=== PATIENT | female | born 1975 | race African-American/Black ===

== ENCOUNTER 2021-07-03 20:30 | Emergency (ER) | payer BC ==
[~2021-07-03] VITALS: Ht 154.9 cm; Wt 105.0 kg
--- NOTE | 2021-07-03 20:47 | PHYS DOC ---
General Adult EDM: Chief Complaint: ABDOMINAL PAIN HPI: HPI: Patient is a 45 year old female presents with a chief complaint of left sided abdominal pain. Patient's pain is in the left flank with radiation to suprapubic. Patient states she has some nausea but has not vomited she states she has some decreased urine output. Patient states symptoms have been ongoing for 3 days progressively getting worse. Review of Systems: Review of Systems: Review of systems: Constitutional symptoms- No fever, no chills. Eyes- No Discharge, No Visual Loss Respiratory symptoms- No shortness of breath, No wheezing, No Dyspnea on Exertion Cardiovascular Systems; No chest pain, No Palpitations, No syncope Gastrointestinal symptoms: NO abdominal pain, positive nausea, no vomiting no diarrhea. Genitourinary symptoms: No dysuria. Positive flank pain positive decreased urinary output Musculoskeletal symptoms: No back pain No extremity pain. NEUROLOGICAL Symptoms: No headache, no generalized weakness; No focal Weakness Skin: No rash. Heart Score: C/O Chest Pain: N/A Risk Factors: Risk Factors: DM, Current or recent (<one month) smoker, HTN, HLP, family history of CAD, obesity. Risk Scores: Score 0 - 3: 2.5% MACE over next 6 weeks - Discharge Home Score 4 - 6: 20.3% MACE over next 6 weeks - Admit for Clinical Observation Score 7 - 10: 72.7% MACE over next 6 weeks - Early Invasive Strategies Physical Exam: PE: Constitutional: Well developed, well nourished, no acute distress, non-toxic appearance. [] HENT: Normocephalic, atraumatic, bilateral external ears normal, oropharynx moist, no oral exudates, nose normal. [] Eyes: PERRLA, EOMI, conjunctiva normal, no discharge. [] Neck: Normal range of motion, no tenderness, supple, no stridor. [] Cardiovascular:Heart rate regular rhythm, no murmur [] Lungs & Thorax: Bilateral breath sounds clear to auscultation [] Abdomen: Bowel sounds normal, soft, no tenderness, no masses, no pulsatile masses. [] Skin: Warm, dry, no erythema, no rash. [] Back: No tenderness, no CVA tenderness. [] Extremities: No tenderness, no cyanosis, no clubbing, ROM intact, no edema. [] Neurologic: Alert and oriented X 3, normal motor function, normal sensory function, no focal deficits noted. [] Psychologic: Affect normal, judgement normal, mood normal. [] EKG: EKG: [] Radiology/Procedures: Radiology/Procedures: [] Course & Med Decision Making: Course & Med Decision Making Pertinent Labs and Imaging studies reviewed. (See chart for details) [] Treated with IV fluids and Toradol. Patient's CT 5 mm distal stone. Patient urine small amount of WBCs positive loose slight esterase large amount of epithelial suspect contamination. Will prescribe patient Flomax, hydrocodone, and Keflex. Patient will be referred to urology. Strict return instructions if pain continues gets worse with fevers and/or nausea and vomiting. Dragon Disclaimer: Dragon Disclaimer: This electronic medical record was generated, in whole or in part, using a voice recognition dictation system. Departure Departure Impression: Primary Impression: Kidney stone Disposition: HOME / SELF CARE / HOMELESS Condition: STABLE Referrals: SILVERIO AVINA MD Patient Instructions: Kidney Stones Scripts Hydrocodone/Acetaminophen (Hydrocodone-Acetamin 5-325 mg) 1 Each Tablet 1 EACH PO Q4-6HRS, #14 TAB Prov: ANTHONY MCNAMARA I DO 07/03/21 Tamsulosin Hcl (FLOMAX) 0.4 Mg Cap.er.24h 0.4 MG PO DAILY for 14 Days, #14 TAB Prov: ANTHONY MCNAMARA I DO 07/03/21 Cephalexin (KEFLEX) 500 Mg Capsule 1 CAP PO BID, #20 CAP Prov: ANTHONY MCNAMARA I DO 07/03/21 ANTHONY MCNAMARA I DO Jul 03, 2021 20:47
[2021-07-03 20:59] LABS: CLARITY,URINE HAZY; COLOR,URINE YELLOW
[2021-07-03 21:00] LABS: BILIRUBIN,URINE NEGATIVE (NEG); NITRITE,URINE NEGATIVE (NEG); PH,URINE 7.5 (<5.0-8.0); PROTEIN,URINE NEGATIVE (NEG-TRACE); UROBILINOGEN,URINE 0.2 mg/dL (0.2 mg/dL)
[2021-07-03 21:02] LABS: BACTERIA,URINE MODERATE /HPF (0-FEW)
[2021-07-03 21:12] LABS: BASO # 0.1 x10^3/uL (0.0-0.2); BASO % 1 % (0-3); EOS # 0.3 x10^3/uL (0.0-0.7); EOS % 2 % (0-3); HEMATOCRIT 45.7 % (36.0-47.0); HEMOGLOBIN 15.1 g/dL (12.0-15.5); LYMPH # 3.5 x10^3/uL (1.0-4.8); LYMPH % 21 % (24-48); MEAN CORPUSCULAR HEMOGLOBIN 30 pg (25-35); MEAN CORPUSCULAR HGB CONC 33 g/dL (31-37); MEAN CORPUSCULAR VOLUME 92 fL (79-100); MONO % 6 % (0-9); NEUT # 11.6 x10^3/uL (1.8-7.7); NEUT % 70 % (31-73); PLATELET COUNT 324 x10^3/uL (140-400); RED BLOOD COUNT 4.98 x10^6/uL (3.50-5.40); WHITE BLOOD COUNT 16.6 x10^3/uL (4.0-11.0)
[2021-07-03 21:43] LABS: CALCIUM 8.7 mg/dL (8.5-10.1); CREATININE 1.2 mg/dL (0.6-1.0); POTASSIUM 4.1 mmol/L (3.5-5.1)
[2021-07-03 21:44] LABS: GFR 59.3
[2021-07-03 21:49] LABS: ALBUMIN 3.3 g/dL (3.4-5.0); ALBUMIN/GLOBULIN RATIO 0.9 (1.0-1.7); TOTAL BILIRUBIN 0.2 mg/dL (0.2-1.0); TOTAL PROTEIN 6.9 g/dL (6.4-8.2)
--- NOTE | 2021-07-03 21:52 | RAD ---
Exam Date: 07/03/2021 9:[address] ABDOMEN+PELVIS WO Indication: Reason: left flank pain / Spl. Instructions: / History: . TECHNIQUE: CT examination of the abdomen and pelvis was performed without oral or intravenous contra st. One or more of the following dose reduction techniques were utilized: *Automated exposure control (AEC) *Adjustment of mA and/or kV according to patient size *Use of iterative reconstruction technique *CT scan done according to ALARA, or ALARA/IMAGE GENTLY FINDINGS: The visualized lung bases are clear. Adrenal glands appear prominent bilaterally which is nonspecific but could represent hyperplasia. The liver, gallbladder, spleen, pancreas, and adrenal glands are otherwise normal. There is mild left hydroureteronephrosis. There is a 6.6 cm left adnexal cyst. The dilated ureter i s mostly obscured by the left adnexal cyst. There is a 5 mm calcification posterior and to the left of the left adnexal cyst, in the region of the distal left ureter and could represent an obstructing ureteral calculus. Alternatively, this could represent a phlebolith, and the left ureter could be ob structed by the large left adnexal cyst. The kidneys are otherwise normal bilaterally. No right hydronephrosis or hydroureter is seen. No ri ght urinary tract calculi are seen. Urinary bladder is normal in appearance. Diverticulosis coli is seen without bowel obstruction or inflammation. The appendix is normal. Minimal atherosclerotic calcifications are seen. No lymphadenopathy or ascites is seen. Degenerative changes are seen in the spine. IMPRESSION: Mild left hydroureteronephrosis. The distal left ureter is obscured by surrounding structures. 5 mm calcification in the left pelvis in the expected region of the distal left ureter could represent ob structing ureteral calculus. Alternatively, this could represent a phlebolith, and the left ureter m ay be obstructed by the large left adnexal cyst measuring up to 6.6 cm. Bilateral adrenal prominence is nonspecific but could represent hyperplasia. Electronically signed by: Leander Moore MD (07/03/2021 9:49 PM) [facility]
[2021-07-03] MEDS ORDERED: TAMSULOSIN 0.4 MG CAP.ER.24H. PO ONE ×2 (22:00→22:29)
[2021-07-03] MEDS ORDERED: IV NORMAL SALINE 1000ML BAG 1,000 ML IV ONE (22:00)
[2021-07-03] MEDS ORDERED: HYDR-2759 PO (22:31)
[2021-07-03] MEDS ORDERED: TAMS0.4C97 PO (22:31)
[2021-07-03] MEDS ORDERED: CEPH500C PO (22:31)
[2021-07-03 23:25] VITALS: BP 150/83
== END 2021-07-03 23:26 | disposition home or self-care (01) ==
LOC: ER 20:30
DX: N13.2 Hydronephrosis with renal and ureteral calculous obstruction (principal)
CPT/HCPCS: 36415; 74176; 80053; 81001; 81025; 83690; 85025; 87086; 96360; 99285; J7030

== ENCOUNTER 2021-08-13 23:46 | Emergency (ER) | payer BC ==
[~2021-08-13] VITALS: Ht 154.9 cm; Wt 102.0 kg
[~2021-08-13 23:46] MED LIST: CEPH500C PO; HYDR-2759 PO; TAMS0.4C97 PO
[2021-08-14 00:28] VITALS: BP 129/74
--- NOTE | 2021-08-14 00:57 | PHYS DOC ---
Past Medical History Past Surgical History: Hysterectomy Smoking Status: Current Every Day Smoker Alcohol Use: None General Adult EDM: Chief Complaint: SHORTNESS OF BREATH HPI: HPI: Patient is a 45 year old female who woke up from sleep, feeling heart palpitation, having trouble breathing. Patient was afraid to go back to sleep since he came in here for evaluation. Patient denies any chest pain or any trouble breathing at this time. Patient denies any abdominal pain, no nausea vomiting. Patient denies any history of a heart problem or diabetic. Patient denies suicidal ideation or homicidal ideation patient does have history of high blood pressure Review of Systems: Review of Systems: Constitutional: Denies fever or chills. [] Eyes: Denies change in visual acuity. [] HENT: Denies nasal congestion or sore throat. [] Respiratory: Denies cough or shortness of breath. [] Cardiovascular: Denies chest pain or edema. [] GI: Denies abdominal pain, nausea, vomiting, bloody stools or diarrhea. [] : Denies dysuria. [] Musculoskeletal: Denies back pain or joint pain. [] Integument: Denies rash. [] Neurologic: Denies headache, focal weakness or sensory changes. [] Endocrine: Denies polyuria or polydipsia. [] Lymphatic: Denies swollen glands. [] Psychiatric: Denies depression or anxiety. [] Heart Score: C/O Chest Pain: N/A Risk Factors: Risk Factors: DM, Current or recent (<one month) smoker, HTN, HLP, family history of CAD, obesity. Risk Scores: Score 0 - 3: 2.5% MACE over next 6 weeks - Discharge Home Score 4 - 6: 20.3% MACE over next 6 weeks - Admit for Clinical Observation Score 7 - 10: 72.7% MACE over next 6 weeks - Early Invasive Strategies Allergies: Allergies: Allergies Coded Allergies Type Severity Reaction Last Updated Verified No Known Drug Allergies 07/03/21 No Physical Exam: PE: Constitutional: Well developed, well nourished, no acute distress, non-toxic appearance. [] HENT: Normocephalic, atraumatic, bilateral external ears normal, oropharynx moist, no oral exudates, nose normal. [] Eyes: PERRLA, EOMI, conjunctiva normal, no discharge. [] Neck: Normal range of motion, no tenderness, supple, no stridor. [] Cardiovascular:Heart rate regular rhythm, no murmur [] Lungs & Thorax: Bilateral breath sounds clear to auscultation [] Abdomen: Bowel sounds normal, soft, no tenderness, no masses, no pulsatile masses. [] Skin: Warm, dry, no erythema, no rash. [] Back: No tenderness, no CVA tenderness. [] Extremities: No tenderness, no cyanosis, no clubbing, ROM intact, no edema. [] Neurologic: Alert and oriented X 3, normal motor function, normal sensory function, no focal deficits noted. [] Psychologic: Affect normal, judgement normal, mood normal. [] Current Patient Data: Vital Signs: Vital Signs Date Time Temp Pulse Resp B/P (MAP) Pulse Ox O2 Delivery O2 Flow Rate FiO2 08/14/21 00:28 98.1 82 14 129/74 (92) 100 Room Air 98.1 EKG: EKG: EKG was done at 1 AM, heart rate 80 bpm, normal sinus rhythm, no ST segment elevation Radiology/Procedures: Radiology/Procedures: [][facility] [address] [place] [address] IMAGING REPORT Signed PATIENT: NEFTALY SORIANO ACCOUNT: [id number] : 1975 LOCATION: ER AGE: 45 SEX: F EXAM STATUS: REG ER ORD. PHYSICIAN: SUN RIVERA DO REASON: soa, cough PROCEDURE: CHEST AP ONLY AP chest x-ray HISTORY: Shortness of breath and cough. FINDINGS: Heart size is normal. Mediastinal silhouette is normal. No pneumothorax, pulmonary opacities or pleural effusions. Bones are unremarkable. IMPRESSION: No acute process. Electronically signed by: Nicolasa Rodriguez MD (08/14/2021 1:08 AM) [facility] [place] DICTATED and SIGNED BY: NICOLASA RODRIGUEZ MD DATE: 08/14/21 0107 Course & Med Decision Making: Course & Med Decision Making Pertinent Labs and Imaging studies reviewed. (See chart for details) Patient is a 45-year-old female who woke up this morning with heart palpitations and trouble breathing. Apparently patient had a panic attack, she did not want to go back to sleep. EKG and chest x-ray did not show any acute problem. Patient be discharged home. Patient states he feels much better now Yobany Disclaimer: Yobany Disclaimer: This electronic medical record was generated, in whole or in part, using a voice recognition dictation system. Departure Departure Impression: Primary Impression: Panic attack Disposition: HOME / SELF CARE / HOMELESS Condition: IMPROVED Referrals: UNKNOWN PCP NAME (PCP) Follow up with your doctor as needed Patient Instructions: Anxiety and Panic Attacks Additional Instructions: Thank you for visiting our Emergency Department. We appreciate you trusting us with your care. If any additional problems come up don't hesitate to return to visit us. Please follow up with your primary care provider so they can plan additional care if needed and know about the problem that you had. If symptoms worsen come back to the Emergency Department. Any concerning symptoms that start such as chest pain, shortness of air, weakness or numbness on one side of the body, running high fevers or any other concerning symptoms return to the ER. SUN RIVERA DO Aug 14, 2021 00:57
--- NOTE | 2021-08-14 01:11 | RAD ---
AP chest x-ray HISTORY: Shortness of breath and cough. FINDINGS: Heart size is normal. Mediastinal silhouette is normal. No pneumothorax, pulmonary opacitie s or pleural effusions. Bones are unremarkable. IMPRESSION: No acute process. Electronically signed by: Efren Rodriguez MD (08/14/2021 1:08 AM) [facility]
--- NOTE | 2021-08-14 05:44 | EKG ---
[facility] [address] [place] [address] Test Date: 2021-08-14 Test Time: 01:00:40 Pat Name: NEFTALY SORIANO Department: Room: Gender: F [place]: : 1975 Requested By: SUN RIVERA Order Number: [id number] Reading MD: Natalio Quigley Measurements Intervals [place] Rate: 80 P: 38 MD: 178 QRS: 30 QRSD: 76 T: 7 QT: 374 QTc: 435 Interpretive Statements SINUS RHYTHM Electronically Signed On 08-17-2021 18:32:15 CDT by Natalio Quigley
== END 2021-08-14 02:04 | disposition home or self-care (01) ==
LOC: ER 23:46
DX: F41.0 Panic disorder [episodic paroxysmal anxiety] (principal); R00.2 Palpitations; R06.02 Shortness of breath; F17.200 Nicotine dependence, unspecified, uncomplicated
CPT/HCPCS: 71045; 93005; 99283